=== PATIENT | male | born 1950 | race Caucasian/White ===

== ENCOUNTER → 2017-12-26 07:32 | Outpatient (CLI) | payer SELFPAY ==
--- NOTE | 2017-12-26 08:02 | US_ITS ---
STUDY: ABDOMINAL ULTRASOUND - RIGHT UPPER QUADRANT REASON FOR VISIT: Male, 67 years old. Elevated liver enzymes. TECHNIQUE: Ultrasound evaluation of the right upper quadrant was performed with real-time and static [place]-scale imaging. TECHNICAL QUALITY: Limited. Examination limited by bowel gas. COMPARISON: None. FINDINGS: Liver: The liver measures 16.4 cm. There is normal echogenicity of the liver. The bile ducts are within normal limits. There is hepatic color flow. The direction of portal flow is hepatopetal. There is no demonstrated mass lesion. Gallbladder: There is a 4.3 mm maximum dimension echogenic, nonshadowing, immobile focus associated with the deep gallbladder wall most compatible with a polyp. The gallbladder wall measures 2.3 mm. There is a negative sonographic Berrios's sign. There is no pericholecystic fluid. There are no gallstones. Common Bile Duct (C.B.D.): The common bile duct measures 2.6 mm. Pancreas: The pancreas is not seen well secondary to technical considerations listed above. However, no evident gross pancreatic pathology. Right Kidney: Normal size of the right kidney. The right kidney measures 9.9 x 5.6 x 5.3 cm. cm. There are 2, anechoic foci associated with the right kidney. The largest measures 2.1 x 1.6 x 2.4 cm and is complicated with a slightly thickened nodular septation. The right cortex measures 1.5 cm. There is no evident renal mass. There is no right hydronephrosis. US/Liver IMPRESSION: 4.3 mm maximum dimension gallbladder polyp. 2 cysts within the right kidney. One is complicated with a slightly thickened and nodular septation. Recommend follow-up to document stability. Mild diffuse thickening of the gallbladder wall. This is a nonspecific finding. Again, there is no evidence of gallstone, pericholecystic. There is a negative sonographic Berrios sign. No sonographic criteria for acute cholecystitis. Electronically Signed: Shamir Edwards MD at 9:22 EDT , Service support ,
== END ==
PROVIDERS: Family Provider Family Medicine; PCP Family Medicine; Visit Provider Family Medicine
DX: R74.8 Abnormal levels of other serum enzymes (principal)
CPT/HCPCS: 76705

== ENCOUNTER → 2018-01-03 16:31 | Outpatient (CLI) | payer SELFPAY ==
[2018-01-03 17:53] LABS: ALB/GLOB Ratio 0.9 RATIO (0.9-2.4); AST(SGOT) 25 U/L (15-37); Alanine Aminotransfer ALT/SGPT 45 U/L (16-61); Albumin, Serum 3.4 g/dL (3.2-5.0); Alkaline Phosphatase 59 U/L (45-117); Anion Gap 9 (5-15); BUN 12 mg/dL (7-18); BUN/Creat Ratio 10.3 RATIO (10-20); Calcium,Total 8.8 mg/dL (8.5-10.1); Chloride 105 mmol/L (98-107); Creatinine, Serum 1.17 mg/dL (0.70-1.30); EST Glomerular Filtration Rate 66 mL/min (>60); Est Glom Filt Rate - Afr Amer 80 mL/min (>60); Globulin 3.7 g/dL (2.2-4.2); Glucose 104 mg/dL (74-106); Potassium 3.9 mmol/L (3.5-5.1); Protein, Total 7.1 g/dL (6.4-8.2); Sodium Level 141 mmol/L (136-145)
== END ==
PROVIDERS: Family Provider Family Medicine; PCP Family Medicine; Visit Provider Internal Medicine Gastroenterology
DX: R10.9 Unspecified abdominal pain (principal); L29.9 Pruritus, unspecified
CPT/HCPCS: 36415; 80053

== ENCOUNTER → 2018-01-31 09:31 | Outpatient (CLI) | payer SELFPAY ==
--- NOTE | 2018-01-31 09:35 | ECHOD_ITS ---
Reason For Study: Afib Procedure This was a 2D Doppler, Color Flow transthoracic echocardiogram. Exam performed in department. Left Ventricle Normal LV size. Mild concentric left ventricular hypertrophy. Mild global left ventricular systolic dysfunction. The estimated ejection fraction is 40 %. Unable to assess diastolic dysfunction due to arrhythmia. No regional wall motion abnormalities noted. Right Ventricle Normal RV size. Normal systolic function. Atria The left atrium is moderately enlarged. Normal right atrium. Mitral Valve Normal mitral valve. Moderate (2+) eccentric mitral valve insufficiency. Tricuspid Valve Normal tricuspid valve. Mild (1+) tricuspid valve insufficiency. Pulmonary artery systolic pressure is 36 mmHg. Aortic Valve Trisinus/trileaflet aortic valve. Pulmonic Valve Normal pulmonic valve. Great Vessels Mildly dilated aortic root. The pulmonary artery is normal size. Inferior vena cava collapse with respiration. Pericardium/Pleural No pericardial effusion. MMode/2D Measurements & Calculations LVIDd: 4.8 cm IVSd: 1.4 cm Ao root diam: 4.2 cm LVIDs: 4.1 cm LVPWd: 1.2 cm LA dimension: 4.9 cm RVDd: 4.0 cm FS: 14.9 % LAV(MOD-bp): 87.2 ml LVAd ap4: 47.7 cm2 SV(MOD-sp4): 77.7 ml LAV(MOD-bp) Indexed: 38.6 ml/m2 EDV(MOD-sp4): 182.6 ml LAV(MOD-sp2): 73.8 ml EDV(sp4-el): 191.0 ml LAV(MOD-sp4): 91.8 ml LVAs ap4: 34.4 cm2 ESV(MOD-sp4): 104.9 ml ESV(sp4-el): 108.3 ml EF(MOD-sp4): 42.5 % EF(sp4-el): 43.3 % SV(sp4-el): 82.7 ml LA A4 area: 28.1 cm2 RA A4 area: 19.1 cm2 Time Measurements MV dec time: 0.22 sec Doppler Measurements & Calculations MV E max dhruv: 118.5 cm/sec Med Peak E' Dhruv: 6.4 cm/sec MV V2 max: 129.8 cm/sec MV A max dhruv: 51.4 cm/sec E/E' med: 18.5 MV max P.7 mmHg MV E/A: 2.3 MV V2 mean: 61.7 cm/sec MV mean P.9 mmHg MV V2 VTI: 36.4 cm MV P1/2t max dhruv: 128.3 cm/sec Ao V2 max: 130.6 cm/sec LV V1 max: 98.6 cm/sec MV P1/2t: 78.8 msec Ao max P.8 mmHg LV V1 max P.9 mmHg MV dec slope: 477.2 cm/sec2 Ao V2 mean: 85.8 cm/sec LV V1 mean P.8 mmHg MVA(P1/2t): 2.8 cm2 Ao mean P.4 mmHg LV V1 mean: 61.5 cm/sec Ao V2 VTI: 23.5 cm LV V1 VTI: 18.8 cm PA V2 max: 89.6 cm/sec TR max dhruv: 283.1 cm/sec TR max P.0 mmHg Interpretation Summary Normal LV size. Mild concentric left ventricular hypertrophy. Mild global left ventricular systolic dysfunction. The estimated ejection fraction is 40 %. Moderate (2+) eccentric mitral valve insufficiency. Pulmonary artery systolic pressure is 36 mmHg. Unable to assess diastolic dysfunction due to arrhythmia. Ordering Physician: Reji Kelley Referring Physician: Reji Kelley Performed By: Rian Talbot RCS
== END ==
PROVIDERS: Family Provider Family Medicine; PCP Family Medicine; Visit Provider Internal Medicine Cardiovascular Disease
DX: I48.91 Unspecified atrial fibrillation (principal)
CPT/HCPCS: 93306

== ENCOUNTER → 2018-04-17 16:55 | Outpatient (CLI) | payer MEDICARE, SELFPAY ==
[2018-04-17 18:28] LABS: AST(SGOT) 26 U/L (15-37); Alanine Aminotransfer ALT/SGPT 37 U/L (16-61); Albumin, Serum 3.8 g/dL (3.2-5.0); Alkaline Phosphatase 51 U/L (45-117); Anion Gap 11 (5-15); BUN 26 mg/dL (7-18); Bilirubin, Direct 0.15 mg/dL (0.00-0.30); Calcium,Total 8.7 mg/dL (8.5-10.1); Chloride 104 mmol/L (98-107); Creatinine, Serum 1.63 mg/dL (0.70-1.30); EST Glomerular Filtration Rate 45 mL/min (>60); Est Glom Filt Rate - Afr Amer 55 mL/min (>60); Globulin 3.8 g/dL (2.2-4.2); Glucose 110 mg/dL (74-106); Potassium 4.3 mmol/L (3.5-5.1); Protein, Total 7.6 g/dL (6.4-8.2); Sodium Level 141 mmol/L (136-145)
== END ==
PROVIDERS: Family Provider Family Medicine; PCP Family Medicine; Visit Provider Internal Medicine Cardiovascular Disease
DX: I48.91 Unspecified atrial fibrillation (principal); R74.8 Abnormal levels of other serum enzymes
CPT/HCPCS: 36415; 80048; 80076

== ENCOUNTER → 2018-07-18 10:11 | Outpatient (CLI) | payer SELFPAY ==
[2018-07-18 09:31] VITALS: BMI 33.8
[2018-07-18 11:04] LABS: Anion Gap 7 (5-15); BUN 27 mg/dL (7-18); Calcium,Total 9.1 mg/dL (8.5-10.1); Chloride 101 mmol/L (98-107); Creatinine, Serum 1.35 mg/dL (0.70-1.30); EST Glomerular Filtration Rate 56 mL/min (>60); Est Glom Filt Rate - Afr Amer 68 mL/min (>60); Glucose 184 mg/dL (74-106); Potassium 4.2 mmol/L (3.5-5.1); Sodium Level 138 mmol/L (136-145)
== END ==
LOC: LAB 10:12
PROVIDERS: Family Provider Family Medicine; PCP Family Medicine; Referring Provider Internal Medicine Cardiovascular Disease; Visit Provider Internal Medicine Cardiovascular Disease
DX: I43 Cardiomyopathy in diseases classified elsewhere (principal)
CPT/HCPCS: 36415; 80048

== ENCOUNTER → 2019-05-28 14:15 | Outpatient (CLI) | payer OTHER, SELFPAY ==
[2019-05-28 13:12] VITALS: BMI 31.3
[2019-05-28 15:25] LABS: Absolute Lymphocyte Count 1.04 X10^3/uL (0.83-4.51); Absolute Neutrophil Count 3.1 X10^3/uL (2.0-7.7); Basophil# 0.03 X10^3/uL; Basophil% 0.6 % (0-1); Eosinophil# 0.13 X10^3/uL; Eosinophils% 2.7 % (0-5); Hematocrit 36.8 % (40-54); Hemoglobin 12.1 g/dL (13.0-16.5); Lymphocyte # 1.04 X10^3/ul (4.0); Lymphocyte % 21.5 % (19-41); Mean Corp Hgb Conc 32.9 g/dL (32-36); Mean Corpuscular Hgb 29.2 pg (27.0-32.0); Mean Corpuscular Volume 88.9 fL (80-94); Mean Platelet Vol. 10.6 fl (6.2-12.0); Monocyte# 0.52 X10^3/uL; Monocyte% 10.7 % (0-10); NRBC Flagged by Analyzer 0 % (0-5); Neutrophil # 3.11 X10^3/uL (2.7-7.7); Neutrophil % 64.3 % (47-70); Platelet Count 186 K/mm3 (150-450); RBC Distribution Width CV 13.1 % (11.6-14.6); RBC Distribution Width SD 42.7 fl (35.1-43.9); Red Blood Count 4.14 M/mm3 (4.6-6.2); White Blood Count 4.8 K/mm3 (4.4-11.0)
[2019-05-28 16:00] LABS: Anion Gap 11 (5-15); BUN 27 mg/dL (7-18); BUN/Creat Ratio 18.6 RATIO (10-20); Calcium,Total 8.7 mg/dL (8.5-10.1); Chloride 105 mmol/L (98-107); Creatinine, Serum 1.45 mg/dL (0.70-1.30); EST Glomerular Filtration Rate 51 mL/min (>60); Est Glom Filt Rate - Afr Amer 62 mL/min (>60); Glucose 130 mg/dL (74-106); Potassium 3.8 mmol/L (3.5-5.1); Sodium Level 142 mmol/L (136-145)
== END ==
PROVIDERS: Family Provider Family Medicine; PCP Family Medicine; Referring Provider Nurse Practitioner Family; Visit Provider Nurse Practitioner Family
DX: I48.0 Paroxysmal atrial fibrillation (principal); I50.22 Chronic systolic (congestive) heart failure; R06.09 Other forms of dyspnea
CPT/HCPCS: 36415; 80048; 83880; 85025

== ENCOUNTER → 2019-06-22 05:46 | Outpatient (CLI) | payer SELFPAY ==
[2019-06-04 10:55] VITALS: BMI 30.8
--- NOTE | 2019-06-22 19:33 | STRESSREP ---
Stress Test Report Pharmacologic myocardial perfusion stress test. 68-year-old man with a history of a cardiomyopathy. Stress protocol: Resting EKG demonstrates atrial fibrillation with a rate of 100 bpm occasional premature ventricular complexes noted. 0.4 mg of regadenoson was infused per usual protocol followed by rapid intravenous saline flush injection continuous EKG monitoring was performed. The maximum heart rate attained was 112 bpm which was 73% of maximum predicted heart rate the maximum workload was 1 metabolic equivalent. At rest there were no ST or T wave changes noted suggest ischemia nonspecific ST changes were noted. The patient maintained atrial fibrillation throughout the recording. The resting blood pressure was 118/84 mmHg with a final blood pressure 112/88 mmHg. Myocardial perfusion protocol. 11.0 mCi of technetium 99m sestamibi was injected at rest. 0.4 mg of regadenoson was infused per usual protocol peak infusion 33.0 mCi of technetium 99m sestamibi was injected stress images were obtained stress and rest images were reconstructed in comparing the short axis vertical and horizontal long axis. Gated images were also obtained per Perfusion SPECT analysis: Review of the stress images demonstrate a mildly dilated cardiac silhouette size. There is a large defect noted involving the inferior wall on the stress and resting images to a similar extent. The above is suggestive of a previous inferior wall myocardial infarction. No obvious ischemia is noted. Gated SPECT analysis: The gated ejection fraction is noted to be 32% with global hypokinesis. Conclusion: Pharmacologic myocardial perfusion stress test with evidence of previous inferior infarct. No ischemia is noted. Atrial fibrillation noted.
== END ==
PROVIDERS: Family Provider Family Medicine; PCP Family Medicine; Referring Provider Physician Assistant Medical; Visit Provider Physician Assistant Medical
DX: I48.0 Paroxysmal atrial fibrillation (principal); I43 Cardiomyopathy in diseases classified elsewhere; R06.02 Shortness of breath
CPT/HCPCS: 78452; 93017; A9500; A4216; J2785

== ENCOUNTER → 2019-06-29 13:23 | Outpatient (CLI) | payer OTHER, SELFPAY ==
[2019-06-04 10:55] VITALS: BMI 30.8
[2019-06-29 14:10] LABS: Hematocrit 40.4 % (40-54); Hemoglobin 12.9 g/dL (13.0-16.5); Mean Corp Hgb Conc 31.9 g/dL (32-36); Mean Corpuscular Hgb 28.9 pg (27.0-32.0); Mean Corpuscular Volume 90.4 fL (80-94); Mean Platelet Vol. 10.6 fl (6.2-12.0); Platelet Count 173 K/mm3 (150-450); RBC Distribution Width CV 13.3 % (11.6-14.6); RBC Distribution Width SD 43.8 fl (35.1-43.9); Red Blood Count 4.47 M/mm3 (4.6-6.2); White Blood Count 5.3 K/mm3 (4.4-11.0)
[2019-06-29 14:29] LABS: Anion Gap 6 (5-15); BUN 25 mg/dL (7-18); Calcium,Total 8.8 mg/dL (8.5-10.1); Chloride 102 mmol/L (98-107); Creatinine, Serum 1.47 mg/dL (0.70-1.30); EST Glomerular Filtration Rate 51 mL/min (>60); Est Glom Filt Rate - Afr Amer 61 mL/min (>60); Glucose 124 mg/dL (74-106); Potassium 3.4 mmol/L (3.5-5.1); Sodium Level 139 mmol/L (136-145)
[2019-06-29 14:35] LABS: BNP,B-Type NATRIURETIC PEPTIDE 406.5 pg/mL (0-100)
[2019-06-29 15:45] LABS: Thyroid Stim Hormone (TSH) 3.23 uIU/mL (0.358-3.74)
== END ==
PROVIDERS: Family Provider Family Medicine; PCP Family Medicine; Referring Provider Physician Assistant Medical; Visit Provider Physician Assistant Medical
DX: I48.0 Paroxysmal atrial fibrillation (principal); I43 Cardiomyopathy in diseases classified elsewhere; R53.83 Other fatigue; R53.1 Weakness; R06.02 Shortness of breath; I50.22 Chronic systolic (congestive) heart failure; Z79.01 Long term (current) use of anticoagulants
CPT/HCPCS: 36415; 80048; 83880; 84443; 85027